=== PATIENT | male | born 1970 | race Caucasian/White ===

== ENCOUNTER 2017-10-18 11:05 | Emergency (ER) | payer OTHER ==
[2017-10-18 11:18] VITALS: BP 131/81; PULSE 66; TEMP 97.2; BMI 29.9
--- NOTE | 2017-10-18 12:11 | PDOC ---
History of Present Illness - General Chief Complaint: Laceration Stated Complaint: FINGER LACERATION - History of Present Illness Initial Comments: 47-year-old male presents for evaluation of left thumb laceration while cutting a piece of tile at work today. He is up-to-date on tetanus and free of any medical comorbidities. He has no other associated symptoms. 10/18/17 12:07 Past History - Past Medical History Allergies/Adverse Reactions: Allergies Allergy/AdvReac Type Severity Reaction Status Date / Time No Known Allergies Allergy Verified 10/18/17 11:14 Home Medications: Ambulatory Orders Omeprazole [Prilosec (RX)] 40 mg PO DAILY 07/03/15 Simvastatin 40 mg PO HS 07/03/15 COPD: No GI Disorders: Yes (gerd) - Suicide/Smoking/Psychosocial Hx Smoking History: Former smoker Have you smoked in the past 12 months: Yes Number of Cigarettes Smoked Daily: 1 Information on smoking cessation initiated: No Hx Alcohol Use: No (social) Drug/Substance Use Hx: No Substance Use Type: Alcohol Review of Systems - Review of Systems Musculoskeletal: Yes: See HPI All Other Systems: Reviewed and Negative *Physical Exam - Vital Signs Last Vital Signs Temp Pulse Resp BP Pulse Ox 97.2 F L 66 19 131/81 99 10/18/17 11:14 10/18/17 11:14 10/18/17 11:14 10/18/17 11:14 10/18/17 11:14 - Physical Exam Comments: There is a longitudinal laceration on the volar aspect of the left thumb extending proximally from the skin overlying the base of the IPJ to the skin overlying the shaft of the proximal phalanx. There is no exposed tendon. IPJ flexion and extension are preserved. He has full strength in opposition. He has mildly decreased sensation on the ulnar and radial aspect of the left thumb. There are no gross motor deficits. 10/18/17 12:08 Medical Decision Making - Medical Decision Making Under aseptic technique digital block was introduced with 8 mL of 1% lidocaine without epinephrine. The wound was explored to its base in a bloodless field there was no foreign body identified. The wound was closed with 4-0 interrupted sutures the wound is about 2 cm in length. A dry sterile dressing was placed and the procedure was tolerated well 10/18/17 12:09 *DC/Admit/Observation/Transfer Diagnosis at time of Disposition: Laceration - Discharge Dispostion Disposition: HOME Condition at time of disposition: Stable Decision to Admit order: No - Referrals Referrals: Rayshawn Castillo MD [Staff Physician] - - Patient Instructions Printed Discharge Instructions: DI for Laceration Repair Additional Instructions: The dressing on for the next 48 hours. After 48 hours you may take it off and wash with soap and water. Do not submerge swimming pool, hot tub do not use of steam room or sign. Return to the emergency room should she develop any redness pain swelling or drainage from the wound. Otherwise follow-up in 10 days for suture removal. He may also follow-up with hand surgery if you require subspecialty evaluation and treatment. - Post Discharge Activity
== END 2017-10-18 12:16 | disposition home or self-care (01) ==
LOC: JERFT 11:05
PROC: 0HQGXZZ Repair Left Hand Skin, External Approach (ICD-10-PCS; principal; 2017-10-18)
DX: S61.012A Laceration without foreign body of left thumb without damage to nail, initial encounter (principal); W29.8XXA Contact with other powered hand tools and household machinery, initial encounter; Y93.89 Activity, other specified; Y92.69 Other specified industrial and construction area as the place of occurrence of the external cause; Y99.0 Civilian activity done for income or pay
CPT/HCPCS: 12001; 99281-25

== ENCOUNTER 2021-01-25 10:02 | Emergency (ER) | payer OTHER ==
[2021-01-25 10:13] VITALS: BP 155/74; PULSE 16; TEMP 97.6; BMI 29.1
== END 2021-01-25 12:17 | disposition home or self-care (01) ==
LOC: JER 10:02 → JERFT 10:02
DX: K64.9 Unspecified hemorrhoids (principal)
CPT/HCPCS: 99281-25

== ENCOUNTER 2022-06-10 18:29 | Emergency (ER) | payer OTHER ==
[2022-06-10 18:38] VITALS: BP 148/97; PULSE 83; RESP 18; TEMP 98.1; BMI 29.9
== END 2022-06-10 21:30 | disposition home or self-care (01) ==
LOC: JERFT 18:29 → JER 18:29 → JERFT 21:30
DX: U07.1 COVID-19 (principal); R05.1 Acute cough; R09.81 Nasal congestion; R19.7 Diarrhea, unspecified
CPT/HCPCS: 0241U-QW; 71046-TC-FY; 99284-25

== ENCOUNTER 2022-08-07 08:27 | Emergency (ER) | payer OTHER ==
[2022-08-07 08:37] VITALS: TEMP 98.5; BMI 30.2
[2022-08-07] MEDS ORDERED: FAMOTIDINE 20 MG/50 ML IVPB 20 MG/50 ML MG IVPB ONE ×2 (08:39→08:41)
[2022-08-07] MEDS ORDERED: methylPREDNISolone NA SUCC 125 MG/2 ML VIAL IVPUSH ONE (08:39)
[2022-08-07] MEDS ORDERED: methylPREDNISolone NA SUCC 125 MG/2 ML VIAL ONE (08:40)
[2022-08-07] MEDS ORDERED: SODIUM CHLORIDE 0.9% 500 ML INFUS.BAG IV ONE (08:41)
[2022-08-07 11:21] VITALS: BP 128/97; PULSE 69; RESP 18
== END 2022-08-07 11:21 | disposition home or self-care (01) ==
LOC: JER 08:27
PROC: 3E033GC Introduction of Other Therapeutic Substance into Peripheral Vein, Percutaneous Approach (ICD-10-PCS; principal; 2022-08-07)
PROC: 3E033GC Introduction of Other Therapeutic Substance into Peripheral Vein, Percutaneous Approach (ICD-10-PCS; 2022-08-07)
PROC: 3E033GC Introduction of Other Therapeutic Substance into Peripheral Vein, Percutaneous Approach (ICD-10-PCS; 2022-08-07)
DX: L29.9 Pruritus, unspecified (principal); T78.40XA Allergy, unspecified, initial encounter; R11.10 Vomiting, unspecified
CPT/HCPCS: 99284-25

== ENCOUNTER 2023-04-09 19:54 | Emergency (ER) | payer OTHER ==
[2023-04-09 20:01] VITALS: BP 134/82; PULSE 90; RESP 20; TEMP 98.4; BMI 29.9
[2023-04-09] MEDS ORDERED: guaiFENesin/D-METHORPHAN HB 10 ML UNIT-DOSE CUPS PO ONE (21:40)
[2023-04-09] MEDS ORDERED: predniSONE 20 MG TABLET (UD) PO ONE (21:40)
[2023-04-09] MEDS ORDERED: predniSONE 20 MG TABLET (UD) ONE (21:52)
[2023-04-09] MEDS ORDERED: guaiFENesin/D-METHORPHAN HB 10 ML UNIT-DOSE CUPS ONE (21:52)
== END 2023-04-09 21:59 | disposition home or self-care (01) ==
LOC: JERFT 19:54
DX: R05.9 Cough, unspecified (principal); R09.89 Other specified symptoms and signs involving the circulatory and respiratory systems; J40 Bronchitis, not specified as acute or chronic
CPT/HCPCS: 71046-TC-FY; 99283-25

== ENCOUNTER 2024-04-29 09:31 | Emergency (ER) | payer OTHER ==
[2024-04-29 09:49] VITALS: BP 121/72; PULSE 89; RESP 20; TEMP 97.8; BMI 21.2
== END 2024-04-29 10:23 | disposition home or self-care (01) ==
LOC: JERFT 09:31
DX: R05.9 Cough, unspecified (principal); J06.9 Acute upper respiratory infection, unspecified; Z20.822 Contact with and (suspected) exposure to COVID-19
CPT/HCPCS: 0241U-QW; 99283-25